=== PATIENT | female | born 1935 | race Caucasian/White ===

== ENCOUNTER 2024-12-25 19:30 | Inpatient (IN) | payer MEDICARE, OTHER ==
[~2024-12-25] VITALS: Ht 154.9 cm; Wt 72.6 kg
[2024-12-25 20:19] LABS: BASOPHILS # (AUTO) 0.1 K/uL (0.0-0.2); BASOPHILS % (AUTO) 1.3 % (0.0-2.0); EOSINOPHILS # (AUTO) 0.1 K/uL (0.0-0.7); EOSINOPHILS % (AUTO) 2.3 % (0.0-6.0); HEMATOCRIT 37 % (33-45); HEMOGLOBIN 12.4 g/dL (11.5-14.8); LYMPHOCYTES # (AUTO) 1.1 K/uL (0.8-4.8); LYMPHOCYTES % (AUTO) 21.4 % (20.0-44.0); MEAN CORPUSCULAR HEMOGLOBIN 31 PG (26.0-33.0); MEAN CORPUSCULAR HGB CONC 34 g/dl (31.0-36.0); MEAN CORPUSCULAR VOLUME 93 fL (82-100); MONOCYTES # (AUTO) 0.4 K/uL (0.1-1.30); MONOCYTES % (AUTO) 8.8 % (2.0-12.0); NEUTROPHILS # (AUTO) 3.4 K/uL (1.8-8.9); NEUTROPHILS % (AUTO) 66.2 % (43.0-81.0); PLATELET COUNT (AUTO) 156 K/uL (150-450); RED BLOOD CELL COUNT(AUTO) 3.96 MIL/uL (4.0-5.2); RED CELL DISTRIBUTION WIDTH 13.5 % (11.5-15.0); WHITE BLOOD COUNT (AUTO) 5.1 K/uL (4.3-11.0)
[2024-12-25] MEDS ORDERED: DONE10TA44 PO (20:23)
[2024-12-25] MEDS ORDERED: CARV12.52 PO (20:23)
[2024-12-25] MEDS ORDERED: CHOL200010 PO (20:23)
[2024-12-25] MEDS ORDERED: MIRT-74 PO (20:23)
[2024-12-25] MEDS ORDERED: ASPI-1420 PO (20:23)
[2024-12-25] MEDS ORDERED: LOSA100T31 PO (20:23)
[2024-12-25 20:28] LABS: CALCIUM, SERUM 9.1 mg/dL (8.5-10.1); CARBON DIOXIDE 31 mmol/L (21-32); CHLORIDE 105 mmol/L (98-107); CREATININE 1.1 mg/dL (0.6-1.3); GLUCOSE 88 mg/dL (74-106); POTASSIUM 3.8 mmol/L (3.5-5.1); SODIUM SERUM 138 mmol/L (136-145); UREA NITROGEN, BLOOD 25 mg/dL (7-18)
[2024-12-25 20:34] LABS: ALANINE AMINOTRANSFERASE 13 U/L (12-78); ALBUMIN 3.3 g/dL (3.4-5.0); ALCOHOL, BLOOD < 3 mg/dL (0-10); ALKALINE PHOSPHATASE 52 U/L (46-116); ASPARTATE AMINOTRANSFERASE 19 U/L (15-37); BILIRUBIN,DIRECT 0.1 mg/dL (0.0-0.2); BILIRUBIN,TOTAL 0.3 mg/dL (0.2-1.0); TOTAL PROTEIN, SERUM 6.8 g/dL (6.4-8.2)
[2024-12-25 20:36] LABS: ACETAMINOPHEN <10 ug/ml (10-30); SALICYLATE 1.2 mg/dL (2.8-20.0)
[2024-12-25 20:56] LABS: APPEARANCE,URINE CLEAR (CLEAR); BILIRUBIN,URINE Negative (NEGATIVE); BLOOD, URINE Negative Ery/uL (NEGATIVE); COLOR,URINE YELLOW (YELLOW); KETONES,URINE Negative (NEGATIVE); LEUKOCYTE ESTERASE ,URINE Trace (NEGATIVE); PH,URINE 5.5 (5.0-8.0); PROTEIN,URINE Trace mg/dl (NEGATIVE); UGLUCOSE Negative (NEGATIVE)
[2024-12-25 21:10] LABS: NITRITE, URINE NEGATIVE (NEGATIVE)
[2024-12-25 21:24] LABS: ADD URINE CULTURE YES; BACTERIA,URINE Few /HPF (None Seen); RBC,URINE 0-2 /HPF (0-2)
[2024-12-25 21:26] LABS: AMPHETAMINE, URINE NEGATIVE (NEGATIVE); BARBITURATE, URINE NEGATIVE (NEGATIVE); BENZODIAZEPINE, URINE NEGATIVE (NEGATIVE); CANNABINOID, URINE NEGATIVE (NEGATIVE); COCCAINE, URINE NEGATIVE (NEGATIVE); OPIATE, URINE NEGATIVE (NEGATIVE); PHENCYCLIDINE SCREEN,URINE NEGATIVE (NEGATIVE)
[2024-12-26] MEDS ORDERED: ZOLPIDEM TARTRATE 5 MG TABLET PO PRN ×2 (06:00)
[2024-12-26] MEDS ORDERED: ACETAMINOPHEN 325 MG TABLET PO PRN (06:00)
[2024-12-26] MEDS ORDERED: MAGNESIUM HYDROXIDE 30 ML UDC PO PRN (06:00)
[2024-12-26] MEDS ORDERED: MAG HYDROX/AL HYDROX/SIMETH 30 ML UDC PO PRN (06:00)
[2024-12-26] MEDS: BLOOD SUGAR DIAGNOSTIC 1 EACH STRIP IN ONE (06:29)
[2024-12-26 06:33] VITALS: BP 181/76; TEMP 97.7; O2SAT 95
[2024-12-26 08:00] VITALS: BP 138/68; TEMP 97.8; O2SAT 94
[2024-12-26] MEDS: CARVEDILOL 12.5 MG TABLET PO SCH (17:04)
[2024-12-26 20:09] VITALS: BP 144/73; TEMP 98; O2SAT 95
[2024-12-26] MEDS: DONEPEZIL 5 MG TABLET PO SCH (21:20)
[2024-12-26] MEDS: MIRTAZAPINE 15 MG TABLET PO SCH (21:20)
[2024-12-26] MEDS: ZOLPIDEM TARTRATE 5 MG TABLET PO PRN (21:56)
[2024-12-27 07:10] LABS: BASOPHILS # (AUTO) 0.1 K/uL (0.0-0.2); BASOPHILS % (AUTO) 1.2 % (0.0-2.0); EOSINOPHILS # (AUTO) 0.1 K/uL (0.0-0.7); EOSINOPHILS % (AUTO) 2.4 % (0.0-6.0); HEMATOCRIT 38 % (33-45); HEMOGLOBIN 12.9 g/dL (11.5-14.8); LYMPHOCYTES # (AUTO) 0.8 K/uL (0.8-4.8); LYMPHOCYTES % (AUTO) 16.5 % (20.0-44.0); MEAN CORPUSCULAR HEMOGLOBIN 31 PG (26.0-33.0); MEAN CORPUSCULAR HGB CONC 34 g/dl (31.0-36.0); MEAN CORPUSCULAR VOLUME 93 fL (82-100); MONOCYTES # (AUTO) 0.5 K/uL (0.1-1.30); MONOCYTES % (AUTO) 10.6 % (2.0-12.0); NEUTROPHILS # (AUTO) 3.5 K/uL (1.8-8.9); NEUTROPHILS % (AUTO) 69.3 % (43.0-81.0); PLATELET COUNT (AUTO) 155 K/uL (150-450); RED BLOOD CELL COUNT(AUTO) 4.15 MIL/uL (4.0-5.2); RED CELL DISTRIBUTION WIDTH 13.4 % (11.5-15.0)
[2024-12-27 07:23] LABS: CALCIUM, SERUM 9.1 mg/dL (8.5-10.1); POTASSIUM 3.6 mmol/L (3.5-5.1)
[2024-12-27 08:00] VITALS: BP 126/71; TEMP 98.6; O2SAT 96
[2024-12-27] MEDS: ASPIRIN EC 81 MG TABLET.DR PO SCH (08:21)
[2024-12-27] MEDS: CHOLECALCIFEROL 1,000 UNIT TABLET (VIT D3) PO SCH (08:21)
[2024-12-27] MEDS: LOSARTAN POTASSIUM 50 MG TABLET PO SCH (08:23)
[2024-12-27 16:00] VITALS: BP 120/60; TEMP 97.9; O2SAT 97
[2024-12-27 20:51] VITALS: BP 101/51; TEMP 97.9; O2SAT 96
[2024-12-27] MEDS: CEPHALEXIN MONOHYDRATE 500 MG CAPSULE PO SCH (21:45)
[2024-12-28 08:00] VITALS: BP 121/60; TEMP 97.8; O2SAT 100
[2024-12-28 16:00] VITALS: BP 100/60; TEMP 98; O2SAT 95
[2024-12-28 20:36] VITALS: BP 104/64; TEMP 97.5; O2SAT 100
[2024-12-29 08:00] VITALS: BP 153/91; TEMP 97.7; O2SAT 95
[2024-12-29 16:00] VITALS: BP 122/55; TEMP 98.6; O2SAT 95
[2024-12-29] MEDS: busPIRone 5 MG TABLET PO SCH (16:46)
[2024-12-29 19:49] VITALS: BP 100/62; TEMP 98.1; O2SAT 95
[2024-12-30 08:00] VITALS: BP 133/65; TEMP 98.6; O2SAT 98
[2024-12-30 16:00] VITALS: BP 112/58; TEMP 98.7; O2SAT 95
[2024-12-30 20:58] VITALS: BP 154/76; TEMP 98.5; O2SAT 96
[2024-12-30] MEDS: OXCARBAZEPINE 150 MG TABLET PO SCH (21:25)
[2024-12-31 08:00] VITALS: BP 168/76; TEMP 98.2; O2SAT 95
[2024-12-31 16:00] VITALS: BP 126/66; TEMP 98.8; O2SAT 100
[2024-12-31 20:12] VITALS: BP 126/65; TEMP 97.5; O2SAT 96
[2025-01-01 08:00] VITALS: BP 147/68; TEMP 98; O2SAT 96
[2025-01-01 16:00] VITALS: BP 133/69; TEMP 98; O2SAT 100
[2025-01-01 20:00] VITALS: BP 113/89; TEMP 98.4; O2SAT 96
[2025-01-01 20:17] VITALS: BP 113/89; TEMP 98.4; O2SAT 100
[2025-01-02 08:00] VITALS: BP 133/74; TEMP 97.6; O2SAT 94
[2025-01-02 08:38] VITALS: BP 133/74
== END 2025-01-02 11:50 | DRG 885 ==
LOC: ER 19:35 → GPS 12-26 04:59
PROVIDERS: ADMIT Psychiatry & Neurology Psychiatry; ATTEND Nurse Practitioner Acute Care
DX: F39 Unspecified mood [affective] disorder (principal); F03.92 Unspecified dementia, unspecified severity, with psychotic disturbance; E46 Unspecified protein-calorie malnutrition; G93.49 Other encephalopathy; F03.93 Unspecified dementia, unspecified severity, with mood disturbance; N39.0 Urinary tract infection, site not specified; F29 Unspecified psychosis not due to a substance or known physiological condition; E88.09 Other disorders of plasma-protein metabolism, not elsewhere classified; Z20.822 Contact with and (suspected) exposure to COVID-19; I10 Essential (primary) hypertension; Z79.82 Long term (current) use of aspirin; Z79.899 Other long term (current) drug therapy; E66.9 Obesity, unspecified; Z68.30 Body mass index [BMI] 30.0-30.9, adult; Z87.891 Personal history of nicotine dependence; B96.89 Other specified bacterial agents as the cause of diseases classified elsewhere; R26.9 Unspecified abnormalities of gait and mobility; R79.89 Other specified abnormal findings of blood chemistry
CPT/HCPCS: 36415; 80048-TC; 80061-TC; 80076-TC; 81001; 82962-TC; 85025-TC; 87081-TC; 97112-TC; 97116-TC; 97530-TC; G0480